=== PATIENT | male | born 1965 | race Caucasian/White ===

== ENCOUNTER 2023-04-08 05:46 | Observation (INO) | payer BC, SELFPAY ==
[2023-04-08] VITALS (10 sets, daily range): BP systolic 114–139; BP diastolic 78–95; PULSE 76–96; RESP 18; TEMP 36–36.7; O2SAT 93–98; BMI 30.1; BMI 30.4
--- NOTE | 2023-04-08 06:01 | CT_ITS ---
We are attempting to reach an attending provider to discuss findings. An addendum with communication details will be sent when the communication is complete. INDICATION: Neuro deficit, acute, stroke suspected EXAMINATION: CT BRAIN - CT Head Stroke Protocol W/O Contrast Injection TECHNIQUE: Multiple axial images were obtained of the head without intravenous contrast. A radiation dose optimization technique was used for this scan. IV Contrast dosage and agent: None. RADIATION DOSAGE (If Supplied By Facility): CTDIvol = ( ) mGy, DLP = ( ) mGycm COMPARISON: FINDINGS: BRAIN: No acute bleed. No edema. Santana-white matter differentiation is maintained. VENTRICLES AND SULCI: Not dilated. EXTRA-AXIAL: No hemorrhage, fluid collection, or mass. CALVARIUM / SKULL BASE: Unremarkable. FACE/SINUSES: Unremarkable. SOFT TISSUES: Unremarkable. CT/STROKE Brain/Head without Cont IMPRESSION: No acute abnormality. CT angiogram and/or MRI may be helpful to evaluate for acute. Electronically Signed: Renuka Jones MD at 6:14 EDT ,
--- NOTE | 2023-04-08 06:01 | EKG12_ITS ---
Test Reason : STROKE Blood Pressure : / mmHG Vent. Rate : 090 BPM Atrial Rate : 090 BPM P-R Int : 190 ms QRS Dur : 092 ms QT Int : 370 ms P-R-T Axes : 040 008 047 degrees QTc Int : 452 ms Normal sinus rhythm Possible Inferior infarct , age undetermined Abnormal ECG Confirmed by MENDY REYES, JASON ([id number]), book editor GERALD LOONEY ([id number]) on 04/11/2023 1:33:41 PM Referred By: Confirmed By:JASON BROOKE MD
--- NOTE | 2023-04-08 06:01 | RAD_ITS ---
INDICATION: Neuro deficit, acute, stroke suspected EXAMINATION/TECHNIQUE: X-RAY - XR Chest 1 View AP portable. 7:14 AM COMPARISON: FINDINGS: LINES/DEVICES: None. LUNGS: No consolidation. No pneumothorax. MEDIASTINUM: Unremarkable. CARDIAC SILHOUETTE: Not enlarged. BONES AND SOFT TISSUES: No acute abnormalities. RAD/Chest 1 View IMPRESSION: No evidence of active intrathoracic disease. Electronically Signed: Renuka Jones MD at 6:21 EDT ,
--- NOTE | 2023-04-08 06:02 | CT_ITS ---
We are attempting to reach an attending provider to discuss findings. An addendum with communication details will be sent when the communication is complete. INDICATION: Neuro deficit, acute, stroke suspected EXAMINATION: CT BRAIN WITH CONTRAST TECHNIQUE: Noncontrast axial images were obtained of the brain. Subsequently, routine carotid CT angiogram protocol was performed without and with IV contrast. In addition, images were obtained of the [place] of [place]. NASCET criteria using the distal ICAs for comparison were used for evaluation of stenoses. 3D reconstructions were reviewed. A radiation dose optimization technique was used for this scan. IV Contrast dosage and agent: COMPARISON: None. FINDINGS: --CT BRAIN: BRAIN PARENCHYMA: No intra- or extra-axial hemorrhage. No evidence of acute infarct. No intracranial mass or mass effect. There is preservation of the delgadillo/white matter interface. Posterior fossa structures are unremarkable. CSF SPACES: Appropriate for age. No hydrocephalus. Basal cisterns are patent. CALVARIUM, SKULL BASE, PARANASAL SINUSES AND MASTOID AIR CELLS: Clear. No discrete lytic or blastic abnormalities. ASPECTS Score for Acute Strokes: 10 --CTA NECK: AORTIC ARCH AND BRANCHES: Normal anatomy, patent. RIGHT CCA: No occlusion, significant stenosis or dissection. RIGHT ICA: No occlusion, significant stenosis or dissection. LEFT CCA: No occlusion, significant stenosis or dissection. LEFT ICA: No occlusion, significant stenosis or dissection. RIGHT VERTEBRAL ARTERY: No occlusion, significant stenosis or dissection. LEFT VERTEBRAL ARTERY: No occlusion, significant stenosis or dissection. NECK SOFT TISSUES: Unremarkable. --CTA HEAD: --Anterior circulation: ICAs: No significant stenosis at the intracranial/visualized segments. ACAs: No significant stenosis at the visualized segments. ACOM: Present. MCAs: No significant stenosis at the visualized segments. --Posterior circulation: supplemental nurse: No significant stenosis at the visualized segments. BASILAR ARTERY: No significant stenosis. VERTEBRAL ARTERIES: No significant stenosis at the intradural/visualized segments. No evidence of intracranial aneurysm or vascular malformation. CT/STROKE CTA Head AND Neck W/Con IMPRESSION: Negative CT Brain, CTA Carotid, and CTA Brain. Electronically Signed: Tito Rahman MD at 6:25 EDT ,
--- NOTE | 2023-04-08 06:02 | EX.ED.DYSGE1 ---
HPI History of Present Illness Chief Complaint: Neuro S/Sx [facility] Medical History (Updated 04/08/23 @ 07:[address] Andres Koo, DO) Anxiety Diabetes Hyperlipemia Hypertension Allergy/AdvReac Type Severity Reaction Status Date / Time No Known Allergies Allergy Verified 04/08/23 06:13 Social History Smoking Status: Never smoker EXAM Physical Exam Const Vital Signs: 04/08/23 05:49 04/08/23 06:01 04/08/23 06:01 Temperature 97.3 F L 97.3 F L Temperature Source Temporal Temporal Pulse Rate 92 92 Respiratory Rate 18 18 Blood Pressure 133/90 H 133/90 H Blood Pressure Mean 104 104 Pulse Ox 95 95 Oxygen Delivery Method Room Air Room Air Room Air 04/08/23 06:24 04/08/23 06:46 Temperature Temperature Source Pulse Rate 93 93 Respiratory Rate 18 18 Blood Pressure 116/83 H 114/84 H Blood Pressure Mean 94 94 Pulse Ox 93 93 Oxygen Delivery Method Room Air Room Air MDM MDM MDM Narrative Medical decision making narrative: HISTORY OF PRESENT ILLNESS: 57-year-old male here with concern for right-sided facial abnormalities. States last known well was approximately 7 PM on 04/07/2023. States he is got decreased sensation of the right arm, and noted right-sided facial drooping. Denies trauma. REVIEW OF SYSTEMS: Pertinent positives: Facial drooping, decreased sensation Pertinent negatives: Fever, neck stiffness, loss of vision PHYSICAL EXAM: Nursing triage notes reviewed, Vital signs reviewed Constitutional: please see mdm HENT: MMM Eyes: Pupils equal round and reactive to light, Extraocular muscles intact Neck: No stridor, no JVD, full neck ROM Lungs: Clear to auscultation, No wheezing or rales. No increased work of breathing, no conversational dyspnea, no accessory muscle use, no nasal flaring. No respiratory distress noted Heart: Regular rate and rhythm, No murmurs, No rubs and No gallops, 2+ distal pulses (radial, femoral, posterior tibial) in all extremities Abdomen: Soft, there is no tenderness, rigidity, rebound or guarding, no obvious peritoneal signs, no palpable pulsatile abdominal masses, no auscultated abdominal bruit : No CVAT Extremities: No edema Neuro: Alert and orient x3, right-sided facial droop, decree sensation right upper extremity, no obvious drift, ataxia, neglect, dysarthria. There is noted aphasia on exam. Skin: No rash or lesions noted MEDICAL DECISION MAKING: Chief Complaint: Facial droop External records reviewed: None Factors affecting care: None documented Social determinants of health: None History obtained from others: The patient's Consults: Stroke neurology, internal medicine ALL IMAGES (IF OBTAINED) HAVE BEEN PERSONALLY REVIEWED AND INTERPRETED BY MYSELF. MDM Narrative: I considered the following differential diagnosis: CVA, focal seizure, Randhawa's palsy. Initial exam most consistent with likely acute CVA. Initial NIH of 4. Patient was taken emergently to CAT scan to rule out bleed. He was not a tPA candidate given last known well outside the 4 and half hour window. He was still a thrombectomy candidate. Noncon CT showed no evidence of ICH, subarachnoid hemorrhage. CTA showed no evidence of large vessel occlusion. The patient is on a candidate for thrombectomy at this time. Obtained labs, EKG, chest x-ray. Labs are unremarkable. He is appropriate for admission at [facility] for further stroke evaluation including MRI and risk factor modification. Discussed with hospitalist (Dr. Fisher). Gave ASA after swallow screen. The patient and/or family, caregivers express understanding. The patient and/or family, caregivers agrees with the plan. Total critical care time today provided was at least 35 minutes. This excludes separately billable procedures. Critical care time (if documented) is secondary to the patient having high probability of clinically significant/life threatening deterioration in the patient's condition which required my urgent intervention. Shared decision making: I will have a discussion with the patient and or visitors regarding risk/benefits of further testing or admission. They will be made aware of of the risk/benefits inherent in this decision they will be given the opportunity to voice understanding. Lab Data Attestation: I reviewed the patient's lab results. Lab results narrative: Liroz-ro-wyqz glucose acceptable CBC with leukocytosis suggestive of systemic inflammation, no anemia or thrombocytopenia noted EKG with normal sinus rhythm, normal axis, normal intervals, no ST or T wave changes to suggest ischemia. No evidence of WPW, Brugada, ARVD. No coagulopathy noted Troponin is negative, no evidence of myocardial ischemia BMP without evidence of significant electrolyte abnormalities, no anion gap, no acute kidney injury. Labs: Laboratory Results - last 24 hr 04/08/23 04/08/23 04/08/23 05:54 06:00 06:00 WBC 11.1 H RBC 4.94 Hgb 15.7 Hct 47.6 MCV 96.4 H MCH 31.8 MCHC 33.0 RDW Std Deviation 47.6 H RDW Coeff of Bhargavi 13.4 Plt Count 324 MPV 11.2 Immature Gran % (Auto) 0.500 Neut % (Auto) 67.6 Lymph % (Auto) 23.9 [place] % (Auto) 6.0 Eos % (Auto) 1.3 Baso % (Auto) 0.7 Absolute Neuts (auto) 7.5 Absolute Lymphs (auto) 2.66 Nucleated RBC % 0 PT 13.7 INR 1.0 APTT 30.9 Sodium Potassium Chloride Carbon Dioxide Anion Gap BUN Creatinine Estim Creat Clear Calc Est GFR (MDRD) Af Amer Est GFR (MDRD) Non-Af BUN/Creatinine Ratio Glucose Calcium Troponin I High Sens POC Glucose 184 H 04/08/23 06:00 WBC RBC Hgb Hct MCV MCH MCHC RDW Std Deviation RDW Coeff of Bhargavi Plt Count MPV Immature Gran % (Auto) Neut % (Auto) Lymph % (Auto) [place] % (Auto) Eos % (Auto) Baso % (Auto) Absolute Neuts (auto) Absolute Lymphs (auto) Nucleated RBC % PT INR APTT Sodium 138 Potassium 3.8 Chloride 106 Carbon Dioxide 25.0 Anion Gap 7 BUN 13 Creatinine 1.15 Estim Creat Clear Calc 66.91 Est GFR (MDRD) Af Amer 84 Est GFR (MDRD) Non-Af 69 BUN/Creatinine Ratio 11.3 Glucose 201 H Calcium 9.6 Troponin I High Sens 3 POC Glucose Radiography Chest X-Ray - ED: Read by ED Physician Diagnostic Testing: Clinical Impression(s) from Imaging Studies Brain CT 04/08/23 06:01 IMPRESSION: No acute abnormality. CT angiogram and/or MRI may be helpful to evaluate for acute. Electronically Signed: Renuka Jones MD at 6:14 EDT , ADDENDUM: 04/08/23 0629 IMPRESSION: No acute abnormality. CT angiogram and/or MRI may be helpful to evaluate for acute. N.B. : The above Results were Read Back by Renuka Jones MD to andres koo DO, and understanding confirmed on 04/08/2023 06:22:36 (ET). Electronically Signed: Renuka Jones MD at 6:14 EDT , Chest X-Ray 04/08/23 06:01 IMPRESSION: No evidence of active intrathoracic disease. Electronically Signed: Renuka Jones MD at 6:21 EDT , Head/Neck CTA 04/08/23 06:02 IMPRESSION: Negative CT Brain, CTA Carotid, and CTA Brain. Electronically Signed: Tito Rahman MD at 6:25 EDT , ADDENDUM: 04/08/23 0646 IMPRESSION: Negative CT Brain, CTA Carotid, and CTA Brain. N.B. : The above Results were Read Back by Tito Rahman MD to Andres Koo DO, and understanding confirmed on 04/08/2023 06:39:10 (ET). Electronically Signed: Tito Rahman MD at 6:25 EDT , I have personally reviewed the patient's chest x-ray. Chest x-ray is unremarkable for pulmonary edema, pneumothorax, pneumonia or focal cardiopulmonary abnormality. Critical Care Time Critical Care Time: Yes Critical care time (excluding procedures): 30-74 minutes Discharge Plan Triage Chief Complaint: Neuro S/Sx ED Provider: Andres Koo Dx/Rx/DC Orders Clinical Impression: Facial droop, Alteration in sensory perception
[2023-04-08 06:10] LABS: Absolute Lymphocyte Count 2.66 X10^3/uL (0.83-4.51); Absolute Neutrophil Count 7.5 X10^3/uL (2.0-7.7); Basophil# 0.08 X10^3/uL; Basophil% 0.7 % (0-1); Eosinophil# 0.15 X10^3/uL; Eosinophils% 1.3 % (0-5); Hematocrit 47.6 % (40-54); Hemoglobin 15.7 g/dL (13.0-16.5); Lymphocyte # 2.66 X10^3/ul (0.83-4.51); Lymphocyte % 23.9 % (19-41); Mean Corpuscular Hgb 31.8 pg (27.0-32.0); Mean Corpuscular Volume 96.4 fL (80-94); Mean Platelet Vol. 11.2 fl (6.2-12.0); Monocyte# 0.67 X10^3/uL; NRBC Flagged by Analyzer 0 % (0-5); Neutrophil % 67.6 % (47-70); Platelet Count 324 K/mm3 (150-450); RBC Distribution Width CV 13.4 % (11.6-14.6); RBC Distribution Width SD 47.6 fl (35.1-43.9); Red Blood Count 4.94 M/mm3 (4.6-6.2); White Blood Count 11.1 K/mm3 (4.4-11.0)
[2023-04-08 06:13] LABS: Bedside Glucose 184 mg/dL (74-106)
[2023-04-08 06:24] LABS: Partial Thromboplast Time 30.9 Seconds (24.1-36.2); Prothrombin Time (Protime)PT. 13.7 SECONDS (11.7-14.9)
[2023-04-08 06:28] LABS: Anion Gap 7 (5-15); BUN 13 mg/dL (7-18); BUN/Creat Ratio 11.3 RATIO (10-20); Calcium,Total 9.6 mg/dL (8.5-10.1); Chloride 106 mmol/L (98-107); Creatinine, Serum 1.15 mg/dL (0.70-1.30); EST Glomerular Filtration Rate 69 mL/min (>60); Est Glom Filt Rate - Afr Amer 84 mL/min (>60); Estimated Creatinine Clearance 66.91 ml/min; Glucose 201 mg/dL (74-106); Potassium 3.8 mmol/L (3.5-5.1); Sodium Level 138 mmol/L (136-145); Troponin-I HS 3 pg/mL (3.0-78.0)
[2023-04-08] MEDS: Aspirin 325 MG Tablet PO (06:53)
--- NOTE | 2023-04-08 07:22 | PCM.HP.STD ---
HPI - General General Date of Admission: 04/08/23 Date of Service: 04/08/23 Chief Complaint: Right face paralysis HPI Narrative GUSTAVO BHAT, is a 57 M w/ hx HTN and hyperlipidemia who presented to [facility] 04/08/2023 with facial droop, slurred speech, right upper extremity decrease in sensation. CTA head neck and CT head unrevealing but patient had NIH of 4, was not a candidate for intervention as he had no large vessel occlusion and he was outside the window for tenecteplase. Hospitalist consulted for admission for further work-up evaluated patient at bedside and he reported symptoms started at 7 PM yesterday, he was eating and felt slightly off but went to bed and woke up with the right side of his face not moving with some difficulty with his speech and his right upper extremity feeling different than the left side and these deficits have persisted. His entire right side of his face upper and lower have difficulty moving and he does not necessarily endorse expressive or receptive aphasia however did seem to have slight difficulty with answering questions and was poor historian. Did not necessarily feel weak on either side however during exam did seem slightly weaker in right lower extremity and endorsed that might be slightly weaker than left and also had slight alteration in sensation both right upper and lower. Denies this ever happening before no history of stroke. Reports has had some stuffy nose with mowing the lawn and the current pollen and has had tremors in his hands off and on for 1 year. Right eye draining but no changes in vision. Has a dull aching headache, and some pain on the back right side of his head in a muscle linear fashion on the right side of his spine going up the back of his head to the middle of his skull. Denies other complaints today. Denies any tick bites or recent viral illnesses or any changes in his hearing [facility] Medical History (Updated 04/08/23 @ 07:[address] Andres Koo, ) Anxiety Diabetes Hyperlipemia Hypertension Allergy/AdvReac Type Severity Reaction Status Date / Time No Known Allergies Allergy Verified 04/08/23 06:13 Social History Smoking Status: Never smoker ROS ROS Narrative General: Denies fever/chills HENT: Dull headache in the back right side of his head/neck pain, slight stuffy nose, denies sore throat EYES: Denies changes in vision but does have tearing in his right eye Resp: Somewhat of a dry cough this past week with allergies, denies shortness of breath Cardiac: Denies chest pain GI: Denies abdominal pain, denies changes in bowel, denies nausea/vomiting : Denies changes in urination Extremity: Denies swelling MSK: Initially denied weakness but possibly very slightly weaker right greater than left Neuro: Decreased sensation in right upper and lower extremities Heme: Denies any bleeding or bruising Skin: Denies rashes Psychiatric: No complaints voiced Vital Signs Vital Signs Vital Signs: 04/08/23 05:49 04/08/23 06:01 04/08/23 06:01 Temperature 97.3 F L 97.3 F L Temperature Source Temporal Temporal Pulse Rate 92 92 Respiratory Rate 18 18 Blood Pressure 133/90 H 133/90 H Blood Pressure Mean 104 104 Pulse Ox 95 95 Oxygen Delivery Method Room Air Room Air Room Air 04/08/23 06:24 04/08/23 06:46 Temperature Temperature Source Pulse Rate 93 93 Respiratory Rate 18 18 Blood Pressure 116/83 H 114/84 H Blood Pressure Mean 94 94 Pulse Ox 93 93 Oxygen Delivery Method Room Air Room Air Weight Weight: 89.8 kg Body Mass Index (BMI) 30.1 Physical Exam Narrative General: Alert, oriented, no apparent distress HEENT: Atraumatic, normocephalic Eyes: Anicteric, normal conjunctiva, extraocular movements intact, pupils equal, did have difficulty closing right eye Neck: Supple Respiratory: Clear to auscultation bilaterally, normal respiratory effort Cardiovascular: Regular rate and rhythm GI: Soft, nontender, nondistended Extremities: No edema Musculoskeletal: Strength 5 out of 5 in right upper extremity, 5 out of 5 left upper extremity, 5 - out of 5 right lower extremity, 5 out of 5 left lower extremity Neuro: Entire right side of face decreased movement compared to left but tongue midline without difficulties moving, slight slurred speech which seem to be associated with his facial droop, shoulder shrug equal, tympanic membranes unremarkable no erythema and no vesicles seen, no sustained clonus on ankle jerk, no gross differences in reflexes bilaterally, decreased sensation in right lower extremity and right upper extremity, right upper extremity sensation closer to normal and shoulder but not distally Skin: No rashes appreciated Psych: Cooperative Results Lab / Micro Data Result Diagrams: 04/08/23 06:00 04/08/23 06:00 Labs: Laboratory Results - last 24 hr 04/08/23 05:54: POC Glucose 184 H 04/08/23 06:00: WBC 11.1 H, RBC 4.94, Hgb 15.7, Hct 47.6, MCV 96.4 H, MCH 31.8, MCHC 33.0, RDW Std Deviation 47.6 H, RDW Coeff of Bhargavi 13.4, Plt Count 324, MPV 11.2, Immature Gran % (Auto) 0.500, Neut % (Auto) 67.6, Lymph % (Auto) 23.9, [place] % (Auto) 6.0, Eos % (Auto) 1.3, Baso % (Auto) 0.7, Absolute Neuts (auto) 7.5, Absolute Lymphs (auto) 2.66, Nucleated RBC % 0 04/08/23 06:00: PT 13.7, INR 1.0, APTT 30.9 04/08/23 06:00: Sodium 138, Potassium 3.8, Chloride 106, Carbon Dioxide 25.0, Anion Gap 7, BUN 13, Creatinine 1.15, Estim Creat Clear Calc 66.91, Est GFR (MDRD) Af Amer 84, Est GFR (MDRD) Non-Af 69, BUN/Creatinine Ratio 11.3, Glucose 201 H, Calcium 9.6, Troponin I High Sens [address] 04/08/23 06:01 IMPRESSION: No acute abnormality. CT angiogram and/or MRI may be helpful to evaluate for acute. Electronically Signed: Renuka Jones MD at 6:14 EDT Reading Location ID and State: [facility] / [place] Tel , Service support , ADDENDUM: 04/08/23628 IMPRESSION: No acute abnormality. CT angiogram and/or MRI may be helpful to evaluate for acute. N.B. : The above Results were Read Back by Renuka Jones MD to andres koo DO, and understanding confirmed on 04/08/2023 06:22:36 (ET). Electronically Signed: Renuka Jones MD at 6:14 EDT Reading Location ID and State: [facility] / [place] Tel , Service support , Chest X-Ray 04/08/23 06:01 IMPRESSION: No evidence of active intrathoracic disease. Electronically Signed: Renuka Jones MD at 6:21 EDT , Head/Neck CTA 04/08/23 06:02 IMPRESSION: Negative CT Brain, CTA Carotid, and CTA Brain. Electronically Signed: Tito Rahman MD at 6:25 EDT , ADDENDUM: 04/08/23 0646 IMPRESSION: Negative CT Brain, CTA Carotid, and CTA Brain. N.B. : The above Results were Read Back by Tito Rahman MD to Andres Koo DO, and understanding confirmed on 04/08/2023 06:39:10 (ET). Electronically Signed: Tito Rahman MD at 6:25 EDT , Assessment & Plan Assessment/Plan (1) Facial droop: (2) Alteration in sensory perception: PLAN: Plan #Neurological deficits/complete right facial palsy, alteration in sensation right upper and lower extremities, right lower extremity mildly weak compared to left -Admit to tele -CT head and CTA head and neck unremarkable -Given his alteration in sensation on the right side with some mild right lower extremity weakness and complete right-sided facial involvement did obtain MRI with and without contrast of head as well as C-spine and thoracic spine -We will also order ESR and CRP as well as Lyme and HIV serology -NIH q4hr -asa, statin -Echo w/ bubble study -PT/OT/Speech eval -Hold BP medications to allow for permissive hypertension for 24 hours unless SBP greater than 220 or DBP greater than 120 or until stroke is ruled out -We will call neurology after MRI/once more results available given symptoms consistent with Randhawa's palsy however has additional neurological deficits/alterations which confuse picture. No findings symmetric do not suspect Guillain-Campbell? syndrome #Hypertension -Allow for permissive hypertension #DVT ppx: Lovenox subcu Radha Fisher MD Time spent in the patient's overall evaluation,decision-making process, review of diagnostic data, adjustment of management, discussion with other providers, nursing nursing and ancillary staff involved in patient's care documentation, 60 minutes Charges/Coding Visit Charges Inpatient E&M: 21106 Init Hosp L2
--- NOTE | 2023-04-08 07:50 | ECHOD_ITS ---
Reason For Study: TIA/CVA Procedure This was a 2D Doppler, Color Flow transthoracic echocardiogram. Exam performed portable in patient room. Left Ventricle Normal LV size. Left ventricular systolic function is normal. The estimated ejection fraction is 60 %. Stage 1 diastolic dysfunction. No regional wall motion abnormalities noted. Right Ventricle Normal RV size. Normal systolic function. Atria Normal left atrium. Normal right atrium. Normal atrial septum. Mitral Valve Normal mitral valve. Tricuspid Valve Normal tricuspid valve. Mild tricuspid valve insufficiency. Pulmonary artery systolic pressure is 28 mmHg. Aortic Valve Trisinus/trileaflet aortic valve. Pulmonic Valve Normal pulmonic valve. Great Vessels Normal aortic root. The pulmonary artery is normal size. Normal inferior vena cava. Pericardium/Pleural No pericardial effusion. Medication Performed a rapid injection of agitated mix of 9 cc saline and 1cc air to assess for atrial septal defect. MMode/2D Measurements & Calculations LVIDd: 4.6 cm IVSd: 1.1 cm Ao root diam: 3.8 cm LVIDs: 2.8 cm LVPWd: 0.89 cm LA dimension: 3.5 cm RVDd: 4.1 cm FS: 39.3 % LAV(MOD-bp): 52.4 ml LA A4 area: 17.3 cm2 RA A4 area: 12.9 cm2 LAV(MOD-bp) Indexed: 25.9 ml/m2 LAV(MOD-sp2): 55.8 ml LAV(MOD-sp4): 40.4 ml Time Measurements MV dec time: 0.25 sec Doppler Measurements & Calculations MV E max chad: 76.0 cm/sec Lat Peak E' Chad: 10.9 cm/sec Med Peak E' Chad: 8.6 cm/sec MV A max chad: 106.2 cm/sec E/E' lat: 7.0 E/E' med: 8.8 MV E/A: 0.72 MV V2 max: 118.3 cm/sec MV P1/2t max chad: 88.8 cm/sec Ao V2 max: 119.2 cm/sec MV max P.6 mmHg MV P1/2t: 85.7 msec Ao max P.7 mmHg MV V2 mean: 64.9 cm/sec MV dec slope: 303.4 cm/sec2 Ao V2 mean: 86.9 cm/sec MV mean P.0 mmHg Ao mean P.4 mmHg MV V2 VTI: 25.7 cm MVA(P1/2t): 2.6 cm2 Ao V2 VTI: 26.6 cm AV (velocity ratio): 0.92 LV V1 max: 107.5 cm/sec PA V2 max: 90.1 cm/sec TR max chad: 246.4 cm/sec LV V1 max P.6 mmHg PA V2 mean: 64.7 cm/sec TR max P.3 mmHg LV V1 mean P.6 mmHg LV V1 mean: 76.2 cm/sec LV V1 VTI: 24.5 cm ECHO/Echo Complete Interpretation Summary Normal LV size. Left ventricular systolic function is normal. The estimated ejection fraction is 60 %. Stage 1 diastolic dysfunction. Pulmonary artery systolic pressure is 28 mmHg. Normal atrial septum. Ordering Physician: Radha Fisher Performed By: Edilson Lane, ANNA
--- NOTE | 2023-04-08 08:00 | MRI_ITS ---
EXAM: MR HEAD WITHOUT AND WITH INTRAVENOUS CONTRAST CLINICAL INDICATION: cva vs white matter lesions, r facial droop, rt sided numbness TECHNIQUE: Multiplanar and multisequence MR images of the brain were obtained without and with intravenous contrast. CONTRAST: IV clariscan 18cc COMPARISON: Ct done earlier. FINDINGS: BRAIN AND EXTRA-AXIAL SPACES: Unremarkable. No intra- or extra-axial hemorrhage. No evidence of acute infarct. No intracranial mass or mass effect. There is preservation of the delgadillo/white matter interface. Posterior fossa structures are unremarkable. Ventricles are appropriate for age. No hydrocephalus. Basal cisterns are patent. SELLA: Unremarkable. Normal sella turcica, pituitary gland, infundibular stalk, optic chiasm and hypothalamus. AUDITORY SYSTEM: Unremarkable. The internal auditory canals are patent. BONES/JOINTS: Unremarkable. No discrete lytic or blastic abnormalities. SINUSES: Unremarkable as visualized. Clear. MASTOID AIR CELLS: Unremarkable as visualized. Clear. ORBITS: Unremarkable as visualized. Both globes, extraocular muscles, optic nerves and retrobulbar fat appear unremarkable. VASCULATURE: Unremarkable as visualized. Normal flow voids in the major intracranial circulation. MRI/Brain W/WO Contrast IMPRESSION: Negative MRI brain without and with intravenous contrast. Electronically Signed: Shantanu Ramírez MD at 17:50 EDT ,
--- NOTE | 2023-04-08 08:00 | MRI_ITS ---
EXAM: MR THORACIC SPINE WITHOUT AND WITH INTRAVENOUS CONTRAST CLINICAL INDICATION: abn neuro exam, cord lesions? r facial droop, rt sided numbness TECHNIQUE: Multiplanar and multisequence MR images of the thoracic spine without and with intravenous contrast. CONTRAST: IV 18cc clariscan COMPARISON: No relevant prior studies available. FINDINGS: VERTEBRAE: Circular focus of increased T2 signal and increased T1 signal in the vertebral bodies of T2, T8, T9, and T10. Minimal enhancement. No fracture. Normal alignment. There is preservation of the normal thoracic kyphosis. No scoliosis. DISCS/SPINAL CANAL/NEURAL FORAMINA: Unremarkable. Normal disc height and morphology. Normal spinal canal and neuroforamina. SPINAL CORD: Unremarkable. Normal in signal and morphology. Normal conus medullaris. SOFT TISSUES: Unremarkable. MRI/Spine Thoracic W/WO Contrast IMPRESSION: Findings suggestive of vertebral body hemangiomas. Electronically Signed: Shantanu Ramírez MD at 18:10 EDT ,
--- NOTE | 2023-04-08 08:00 | MRI_ITS ---
STUDY: MRI CERVICAL SPINE WITH AND WITHOUT CONTRAST REASON FOR EXAM: Male, 57 years old. History: abn neuro exam, cord lesions? r facial droop, rt sided numbness TECHNIQUE: Standardized fat and water weighted pulse sequences were obtained in the sagittal and axial with and without I.V. administration Contrast: IV 18cc clariscan contrast material. COMPARISON: None FINDINGS: Normal foramen magnum and brainstem-cervical cord junction. Normal craniovertebral junction. Normal anterior atlantoaxial articulation. Normal odontoid process. Normal cervical lordosis. T2 vertebral body hemangioma. C2-3: Loss of intervertebral disc height. There is endplate spondylosis of the vertebral body. Normal central canal and intervertebral neuroforamina. There is bilateral facet arthropathy. Posterior disc bulge. C3-4: Normal endplates. Normal disc height and morphology. Normal central canal and intervertebral neuroforamina. C4-5: Normal endplates. Normal disc height and morphology. Normal central canal and intervertebral neuroforamina. C5-6: Loss of intervertebral disc height. There is endplate spondylosis of the vertebral body. Normal central canal and intervertebral neuroforamina. There is bilateral facet arthropathy. Posterior disc bulge. C6-7: Loss of intervertebral disc height. There is endplate spondylosis of the vertebral body. No narrowing of the intervertebral neuroforamina. There is bilateral facet arthropathy. Posterior disc bulge. Mild spinal stenosis. C7-T1: Normal endplates. Normal disc height and morphology. Normal central canal and intervertebral neuroforamina. Normal visualized soft tissue structures. MRI/Spine Cervical W/WO Contrast IMPRESSION: (NOT LISTED IN ORDER OF SIGNIFICANCE) Multilevel degenerative changes, as described above. C6-7: Posterior disc bulge. Mild spinal stenosis. Electronically Signed: Shantanu Ramírez MD at 17:55 EDT Reading Location ID and State: [facility] / [place] , Service support ,
[2023-04-08 08:28] LABS: Erythrocyte Sedimentation Rate < 1 mm/hr (0-20)
[2023-04-08] MEDS: 0.9% Normal Saline 1,000 ML 100 ML IV (08:48)
[2023-04-08] MEDS: Aspirin 81 MG TAB.CHEW PO (08:49)
[2023-04-08] MEDS: Enoxaparin 40 MG/0.4 ML Syringe SC (08:49)
[2023-04-08 09:06] LABS: AST(SGOT) 15 U/L (15-37); Alanine Aminotransfer ALT/SGPT 34 U/L (16-61); Albumin, Serum 3.9 g/dL (3.2-5.0); Alkaline Phosphatase 74 U/L (45-117); Bilirubin, Direct 0.14 mg/dL (0.00-0.30); CRP < 2.90 mg/L (0.0-3.0); Globulin 2.8 g/dL (2.2-4.2); Protein, Total 6.7 g/dL (6.4-8.2)
[2023-04-08 09:30] LABS: HIV - WCH Non-Reactive (Nonreactive)
[2023-04-08 12:28] LABS: Bedside Glucose 105 mg/dL (74-106)
--- NOTE | 2023-04-08 17:02 | NURSING ---
Patient left unit to MRI at 1345 Patient returned to unit at 1615
--- NOTE | 2023-04-08 17:08 | NURSING ---
NIH late at 1630 04/08/23 due to patient being in MRI. Was due at 1600.
[2023-04-08] MEDS: Acetaminophen 325 MG Tablet 650 MG PO (17:34)
[2023-04-08 18:02] LABS: Bedside Glucose 116 mg/dL (74-106)
--- NOTE | 2023-04-08 21:35 | NURSING ---
Emergency Documentation in place 04/08 19:00
[2023-04-08 22:59] LABS: Bedside Glucose 122 mg/dL (74-106)
[2023-04-09 04:15] VITALS: BP 134/97; PULSE 82; RESP 18; TEMP 36.1; O2SAT 96
[2023-04-09 06:00] VITALS: BMI 30.1
[2023-04-09 06:36] LABS: Absolute Lymphocyte Count 2.06 X10^3/uL (0.83-4.51); Absolute Neutrophil Count 5.9 X10^3/uL (2.0-7.7); Basophil# 0.04 X10^3/uL; Basophil% 0.5 % (0-1); Eosinophil# 0.14 X10^3/uL; Eosinophils% 1.6 % (0-5); Hematocrit 45.5 % (40-54); Hemoglobin 15.2 g/dL (13.0-16.5); Lymphocyte # 2.06 X10^3/ul (0.83-4.51); Lymphocyte % 23.8 % (19-41); Mean Corp Hgb Conc 33.4 g/dL (32-36); Mean Corpuscular Hgb 32.1 pg (27.0-32.0); Mean Platelet Vol. 10.7 fl (6.2-12.0); Monocyte# 0.49 X10^3/uL; Monocyte% 5.7 % (0-10); NRBC Flagged by Analyzer 0 % (0-5); Neutrophil # 5.91 X10^3/uL (2.7-7.7); Neutrophil % 68.1 % (47-70); Platelet Count 246 K/mm3 (150-450); RBC Distribution Width CV 13.2 % (11.6-14.6); RBC Distribution Width SD 46.6 fl (35.1-43.9); Red Blood Count 4.74 M/mm3 (4.6-6.2); White Blood Count 8.7 K/mm3 (4.4-11.0)
[2023-04-09] MEDS: Lithium Carbonate 300mg Capsule 300 MG PO (06:39)
[2023-04-09] MEDS: Pantoprazole Sodium 20 MG Tablet PO (06:39)
[2023-04-09] MEDS: Aspirin 81 MG TAB.CHEW PO (06:39)
[2023-04-09] MEDS: busPIRone 5 MG Tablet 10 MG PO (06:39)
[2023-04-09] MEDS: Venlafaxine XR 150 MG Capsule PO (06:39)
--- NOTE | 2023-04-09 06:39 | NURSING ---
Pt requesting home morning meds to be given now.
[2023-04-09] MEDS: clonazePAM 0.5 MG Tablet PO (06:44)
[2023-04-09] MEDS: Gabapentin 600 MG Tablet 1200 MG PO (06:45)
[2023-04-09 06:58] LABS: Bedside Glucose 169 mg/dL (74-106)
[2023-04-09 07:31] LABS: ALB/GLOB Ratio 1.4 RATIO (0.9-2.4); AST(SGOT) 16 U/L (15-37); Alanine Aminotransfer ALT/SGPT 33 U/L (16-61); Albumin, Serum 3.8 g/dL (3.2-5.0); Alkaline Phosphatase 75 U/L (45-117); BUN 15 mg/dL (7-18); BUN/Creat Ratio 14.4 RATIO (10-20); Calcium,Total 9.1 mg/dL (8.5-10.1); Cholesterol 148 mg/dL (200); Creatinine, Serum 1.04 mg/dL (0.70-1.30); EST Glomerular Filtration Rate 78 mL/min (>60); Est Glom Filt Rate - Afr Amer 94 mL/min (>60); Globulin 2.7 g/dL (2.2-4.2); Glucose 136 mg/dL (74-106); Protein, Total 6.5 g/dL (6.4-8.2)
[2023-04-09 07:32] LABS: Anion Gap 7 (5-15); Chloride 108 mmol/L (98-107); High Density Lipoprotein 37 mg/dL; Sodium Level 139 mmol/L (136-145); Triglycerides 457 mg/dL
--- NOTE | 2023-04-09 08:03 | CASEMGMT ---
Social work PHQ-9 not completed, as per neurology consult pt did not have a stroke, but rather symptoms related to [place] P[place]y. ED [place]
[2023-04-09 10:05] LABS: Hemoglobin A1c 6.1 % (3.8-5.6)
[2023-04-09 10:08] LABS: Lyme Scn Total Ab w/Rflx Negative (Negative)
[2023-04-09 10:10] LABS: Syphilis Antibodies Non-reactive
[2023-04-09 10:15] VITALS: BP 121/92; PULSE 88; RESP 16; TEMP 36.5; O2SAT 96
[2023-04-09] MEDS: predniSONE 20 MG Tablet 60 MG PO (10:18)
[2023-04-09 10:40] VITALS: O2SAT 93
[2023-04-09 11:14] VITALS: BMI 30.1
[2023-04-09 11:46] LABS: Bedside Glucose 201 mg/dL (74-106)
--- NOTE | 2023-04-09 12:50 | DCINST_ITS ---
Discharge Instructions Diet Discharge Diet: No restrictions Activity Discharge Activity: Return to Normal Activity Follow Up Care Test Results: Test results from this visit will be discussed in further detail at your follow- up appointment, if applicable. Discharge Plan Admission Admit Date/Time: 04/08/23 07:31 Primary Reason for Your Visit: Right sided facial drooping Attending Provider: Radha Fisher Primary Care Provider: Jessica Marcelino Instructions Patient Instructions: Randhawa's Palsy, ED Randhawa's Palsy Additional Instructions / Restrictions: DISCHARGE INSTRUCTIONS PLEASE READ *Please take this with you to your next doctors appointment* -You will be discharged on 81 mg of aspirin and you will be on prednisone for your Randhawa's palsy to help with recovery. He will take prednisone 60 mg for another 5 days and this will be tapered over the following 4 days -As we discussed there was an incidental finding on your thoracic MRI, you were found to have several spots with extra vessels, called vertebral body hemangiomas, which can be found in up to 10% and are benign. These routinely do not need follow up but this can be discussed with your primary care physician -Your lithium level was 1.10 which is the upper limit of normal, recommend discussing with your psychiatrist for further monitoring or adjustments in the future if needed. -Your lab work-up including inflammatory markers, syphilis, Lyme disease, HIV have been negative. You have several lab studies still pending which will not acutely alter management and they can take multiple days for results to come back. These result can be followed up with through your primary care physi clement's office. You can also use the [employer] patient portal to gain access to any laboratory results that are pending -Please call your primary care provider's office upon discharge to schedule a hospital follow up within 1 week. -For any concerning signs or symptoms please call 911 or proceed to the nearest emergency department Discharge Orders/Prescriptions Prescriptions: New aspirin 81 mg Tablet,Chewable 81 mg PO BREAKFAST 30 Days Qty: 30 0RF prednisone 20 mg Tablet See Taper PO BREAKFAST Qty: 22 0RF Taper: Prednisone Taper 60 mg WITH BREAKFAST for 5 Days and 0 Hour 50 mg WITH BREAKFAST for 1 Day and 0 Hour 40 mg WITH BREAKFAST for 1 Day and 0 Hour 30 mg WITH BREAKFAST for 1 Day and 0 Hour 20 mg WITH BREAKFAST for 1 Day and 0 Hour Continued gabapentin 600 mg Tablet 1,200 mg PO BID atorvastatin 80 mg Tablet 80 mg PO QHS clonazepam 0.5 mg Tablet 0.5 mg PO BID venlafaxine 150 mg Capsule,Extended Release 24hr 150 mg PO BID lithium carbonate 300 mg Capsule 300 mg PO BID Rx Instructions: 1 capsule in the morning, 2 capsules in the evening buspirone 10 mg Tablet 10 mg PO TID lisinopril 10 mg Tablet 10 mg PO DAILY omeprazole 20 mg Capsule,Delayed Release(Dr/Ec) 20 mg PO DAILY Referrals / Follow Up: Jessica Marcelino MD [Primary Care Provider] - Within 1 Week Disposition Disposition (needs filled in before D/C Order can be placed): Home, Self Care
--- NOTE | 2023-04-09 13:09 | DS.PCM_ITS ---
Providers Date of Admission: 04/08/23 Date of Discharge: 04/09/23 Primary Care Physician: Dr. 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.0 - Randhawa's palsy (2) Hypertriglyceridemia: Status: Acute Code(s): E78.1 - Pure hyperglyceridemia (3) Vertebral body hemangioma: Status: Acute Code(s): D18.09 - Hemangioma of other sites Plan #[place] palsy #Hypertension #Depression and anxiety #LILLIANA on cpap #Suspected vertebral body hemangiomas on MRI Medications at Discharge Home Medications atorvastatin 80 mg tablet 80 mg PO QHS cholesterol 04/08/23 buspirone 10 mg tablet 10 mg PO TID anxiety 04/08/23 clonazepam 0.5 mg tablet 0.5 mg PO BID anxiety 04/08/23 gabapentin 600 mg tablet 1,200 mg PO BID nerve pain 04/08/23 lisinopril 10 mg tablet 10 mg PO DAILY blood pressure 04/08/23 lithium carbonate 300 mg capsule 300 mg PO BID mental health 04/08/23 omeprazole 20 mg capsule,delayed release 20 mg PO DAILY reflux 04/08/23 venlafaxine 150 mg capsule,extended release 24 hr 150 mg PO BID mental health 04/08/23 aspirin 81 mg chewable tablet 81 mg PO BREAKFAST 30 days #30 tabs 04/09/23 prednisone 20 mg tablet See Taper PO BREAKFAST #22 tabs 04/09/23 Hospital Course Procedures Transthoracic echo Summary of Care Provided Minutes Spent on Discharge: 40 Hospital Course: 57-year-old male with history of hypertension, depression, LILLIANA, high cholesterol presented to [facility] 04/08/2023 with R facial droop, slurred speech, right upper extremity and lower extremity decrease in sensation. CTA head neck and CT head unrevealing but patient had NIH of 4, was not a candidate for intervention as he had no large vessel occlusion and he was outside the window for tenecteplase.? Hospitalist consulted for admission for further work- up. Patient had droop both upper and lower right side of face however given his reported alteration in sensation of right hand and lower arm as well as some on his leg and possibly slight weakness of right leg compared to left he was admitted for further stroke work-up though complete right-sided facial droop more consistent with peripheral etiology. Echocardiogram with EF of 60%, stage I diastolic dysfunction with no wall motion abnormalities and normal atrial septum. Given his right arm and leg complaints he not only had MRI with and without contrast of his brain but also C-spine and T-spine ordered patient had no stroke and no other findings that would suggest underlying etiology. Did have some changes consistent with vertebral body hemangiomas but nothing that would contribute to current symptomatology. Inflammatory markers were negative, syphilis, HIV, Lyme negative. Had MICHAEL with reflex panel pending but does not need to stay inpatient while waiting for these results. Telemetry neuro evaluated and recommended aspirin daily as well as prednisone 60 mg x 5 days with a 4-day taper. On day of discharge patient still reports he does have the right-sided facial droop but sensation in extremities improving and weakness in right leg resolved, does still have some intermittent sharp pains on the right side of the back of his skull that have been present for a week or 2 and come and go and have been unchanged. If prednisone does not improve this, further work-up or treatment. Discharge instructions as follows: DISCHARGE INSTRUCTIONS PLEASE READ *Please take this with you to your next doctors appointment* -You will be discharged on 81 mg of aspirin and you will be on prednisone for your Randhawa's palsy to help with recovery.? He will take prednisone 60 mg for another 5 days and this will be tapered over the following 4 days -As we discussed there was an incidental finding on your thoracic MRI, you were found to have several spots with extra vessels, called vertebral body hemangiomas, which can be found in up to 10% and are benign. These routinely do not need follow up but this can be discussed with your primary care physician -Your lithium level was 1.10 which is the upper limit of normal, recommend discussing with your psychiatrist for further monitoring or adjustments in the future if needed. -Your lab work-up including inflammatory markers, syphilis, Lyme disease, HIV have been negative.? You have several lab studies still pending which will not acutely alter management and they can take multiple days for results to come back.? These result can be followed up with through your primary care physician 's office.? You can also use the [employer] patient portal to gain access to any laboratory results that are pending -Please call your primary care provider's office upon discharge to schedule a hospital follow up within 1 week. -For any concerning signs or symptoms please call 911 or proceed to the nearest emergency department Physical Exam Narrative General: Alert, oriented, no apparent distress HEENT: Atraumatic, right-sided facial droop Eyes: Anicteric, normal conjunctiva, extraocular movements grossly intact, right-sided facial droop with difficulty blinking right eye compared to left Neck: Supple Respiratory: Clear to auscultation bilaterally, normal respiratory effort Cardiovascular: Regular rate and rhythm GI: Soft, nontender, nondistended Extremities: No edema. No pain when palpating neck or back of head Musculoskeletal: Moving all extremities, legs with equal strength today, 5/ Neuro: Right-sided facial droop appreciated with no other overt focal deficits Skin: No rashes appreciated Psych: Cooperative Weight / BMI Weight Weight: 87.2 kg Body Mass Index (BMI) 30.1 ABG / Lab / Microbiology Data Result Diagrams: 04/09/23 06:20 04/09/23 06:20 Laboratory: Laboratory Results - last 24 hr 04/08/23 08:13: Lyme Total Antibody Negative 04/08/23 17:43: POC Glucose 116 H 04/08/23 22:17: POC Glucose 122 H 04/09/23 06:20: WBC 8.7, RBC 4.74, Hgb 15.2, Hct 45.5, MCV 96.0 H, MCH 32.1 H, MCHC 33.4, RDW Std Deviation 46.6 H, RDW Coeff of Bhargavi 13.2, Plt Count 246, MPV 10.7, Immature Gran % (Auto) 0.300, Neut % (Auto) 68.1, Lymph % (Auto) 23.8, [place] % (Auto) 5.7, Eos % (Auto) 1.6, Baso % (Auto) 0.5, Absolute Neuts (auto) 5.9, Absolute Lymphs (auto) 2.06, Nucleated RBC % 0 04/09/23 06:20: Sodium 139, Potassium 4.0, Chloride 108 H, Carbon Dioxide 24.0, Anion Gap 7, BUN 15, Creatinine 1.04, Estim Creat Clear Calc 71.50, Est GFR (MDRD) Af Amer 94, Est GFR (MDRD) Non-Af 78, BUN/Creatinine Ratio 14.4, Glucose 136 H, Calcium 9.1, Total Bilirubin 0.70, AST 16, ALT 33, Alkaline Phosphatase 75, Total Protein 6.5, Albumin 3.8, Globulin 2.7, Albumin/Globulin Ratio 1.4, Triglycerides 457 H, Cholesterol 148, LDL Cholesterol TNP, VLDL Cholesterol TNP, HDL Cholesterol 37 L 04/09/23 06:20: Hemoglobin A1c 6.1 H 04/09/23 06:34: POC Glucose 169 H 04/09/23 08:10: Syphilis Total Ab Non-reactive 04/09/23 08:10: [place] 1.10 04/09/23 11:29: POC Glucose 201 H Radiography Diagnostic Testing: Radiology Impression Echocardiogram 04/08/23 07:50 Interpretation Summary Normal LV size. Left ventricular systolic function is normal. The estimated ejection fraction is 60 %. Stage 1 diastolic dysfunction. Pulmonary artery systolic pressure is 28 mmHg. Normal atrial septum. Ordering Physician: Radha Fisher Performed By: Edilson Lane [facility] Brain MRI 04/08/23 08:00 IMPRESSION: Negative MRI brain without and with intravenous contrast. Electronically Signed: Shantanu Ramírez MD at 17:50 EDT , Cervical Spine MRI 04/08/23 08:00 IMPRESSION: (NOT LISTED IN ORDER OF SIGNIFICANCE) Multilevel degenerative changes, as described above. C6-7: Posterior disc bulge. Mild spinal stenosis. Electronically Signed: Shantanu Ramírez MD at 17:55 EDT , Thoracic Spine MRI 04/08/23 08:00 IMPRESSION: Findings suggestive of vertebral body hemangiomas. Electronically Signed: Shantanu Ramírez MD at 18:10 EDT Reading Location ID and State: [facility] / [place] , Service support , D/C Instructions Discharge Diet: No restrictions Meaningful Use Info Meaningful Use Diagnoses (Choose all that apply): None applicable Discharge Plan Admission Admit Date/Time: 04/08/23 07:31 Primary Reason for Your Visit: Right sided facial drooping Attending Provider: Radha Fisher Primary Care Provider: Jessica Marcelino Instructions Patient Instructions: Randhawa's Palsy, ED Randhawa's Palsy Additional Instructions / Restrictions: DISCHARGE INSTRUCTIONS PLEASE READ *Please take this with you to your next doctors appointment* -You will be discharged on 81 mg of aspirin and you will be on prednisone for your Randhawa's palsy to help with recovery. He will take prednisone 60 mg for another 5 days and this will be tapered over the following 4 days -As we discussed there was an incidental finding on your thoracic MRI, you were found to have several spots with extra vessels, called vertebral body hemangiomas, which can be found in up to 10% and are benign. These routinely do not need follow up but this can be discussed with your primary care physician -Your lithium level was 1.10 which is the upper limit of normal, recommend discussing with your psychiatrist for further monitoring or adjustments in the future if needed. -Your lab work-up including inflammatory markers, syphilis, Lyme disease, HIV have been negative. You have several lab studies still pending which will not acutely alter management and they can take multiple days for results to come back. These result can be followed up with through your primary care physi clement's office. You can also use the [employer] patient portal to gain access to any laboratory results that are pending -Please call your primary care provider's office upon discharge to schedule a hospital follow up within 1 week. -For any concerning signs or symptoms please call 911 or proceed to the nearest emergency department Discharge Orders/Prescriptions Prescriptions: New aspirin 81 mg Tablet,Chewable 81 mg PO BREAKFAST 30 Days Qty: 30 0RF prednisone 20 mg Tablet See Taper PO BREAKFAST Qty: 22 0RF Taper: Prednisone Taper 60 mg WITH BREAKFAST for 5 Days and 0 Hour 50 mg WITH BREAKFAST for 1 Day and 0 Hour 40 mg WITH BREAKFAST for 1 Day and 0 Hour 30 mg WITH BREAKFAST for 1 Day and 0 Hour 20 mg WITH BREAKFAST for 1 Day and 0 Hour Continued gabapentin 600 mg Tablet 1,200 mg PO BID atorvastatin 80 mg Tablet 80 mg PO QHS clonazepam 0.5 mg Tablet 0.5 mg PO BID venlafaxine 150 mg Capsule,Extended Release 24hr 150 mg PO BID lithium carbonate 300 mg Capsule 300 mg PO BID Rx Instructions: 1 capsule in the morning, 2 capsules in the evening buspirone 10 mg Tablet 10 mg PO TID lisinopril 10 mg Tablet 10 mg PO DAILY omeprazole 20 mg Capsule,Delayed Release(Dr/Ec) 20 mg PO DAILY Referrals / Follow Up: Jessica Marcelino MD [Primary Care Provider] - Within 1 Week Disposition Disposition (needs filled in before D/C Order can be placed): Home, Self Care Charges/Coding Visit Charges Inpatient E&M: 52304 Disch Hosp >30min
[2023-04-11 13:07] LABS: ANTINUCLEAR ANTIBODIES DIRECT Negative (Negative)
== END 2023-04-09 14:03 | disposition home or self-care (01) ==
LOC: ED 06:03 → PCU 07:26
PROVIDERS: Admitting Provider Internal Medicine; Emergency Provider Emergency Medicine; PCP Internal Medicine; Visit Provider Internal Medicine
DX: G51.0 Bell's palsy (principal); E11.9 Type 2 diabetes mellitus without complications; D18.09 Hemangioma of other sites; R47.81 Slurred speech; I10 Essential (primary) hypertension; Z79.899 Other long term (current) drug therapy; E78.00 Pure hypercholesterolemia, unspecified; F41.9 Anxiety disorder, unspecified; R94.31 Abnormal electrocardiogram [ECG] [EKG]; I07.1 Rheumatic tricuspid insufficiency
CPT/HCPCS: 36415; 70450; 70496; 70498; 70553; 71045; 72156; 72157; 80048; 80053; 80061; 80076; 80178; 82962; 83036; 84484; 85025; 85610; 85652; 85730; 86038; 86140; 86225; 86235; 86618; 86703; 86780; 92526; 92610; 93005; 93306; 94668; 94762; 96360; 96361; 96372; 97110; 97116; 97162; 97166; 97530; 99221; 99252; 99284; A9575; J7030; Q9957; Q9967; A4216; G0378; G0463

== ENCOUNTER 2023-06-28 09:37 | Emergency (ER) | payer BC, SELFPAY ==
[2023-06-28 09:38] VITALS: BP 133/86; PULSE 98; RESP 14; TEMP 36.4; O2SAT 98; BMI 28.8
--- NOTE | 2023-06-28 09:51 | EDS_ITS ---
HPI History of Present Illness Chief Complaint: Neuro S/Sx Narrative Narrative: Patient presents with facial droop inability to close eye and forehead involvement. No weakness in the arm or leg. No recent fevers chills. No recent rash. He has never had shingles in the past. Denies any other target lesion recently. His history is complicated that a few months ago he had right- sided Randhawa's palsy which mostly resolved. 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 Anxiety Arthritis CPAP (continuous positive airway pressure) dependence Depression Diabetes Diabetes Former smoker HTN (hypertension) Hyperlipemia Hypertension Kidney stones Sleep apnea Vertebral body hemangioma Home Medications atorvastatin 80 mg tablet 80 mg PO QHS cholesterol 04/08/23 [History Last Taken 04/07/23] buspirone 10 mg tablet 10 mg PO TID anxiety 04/08/23 [History Last Taken 04/08/23 05:00] clonazepam 0.5 mg tablet 0.5 mg PO BID anxiety 04/08/23 [History Last Taken 04/08/23 05:00] gabapentin 600 mg tablet 1,200 mg PO BID nerve pain 04/08/23 [History Last Taken 04/08/23 05:00] lisinopril 10 mg tablet 10 mg PO DAILY blood pressure 04/08/23 [History Last Taken 04/08/23 05:00] lithium carbonate 300 mg capsule 300 mg PO BID mental health 04/08/23 [History Last Taken 04/08/23 05:00] omeprazole 20 mg capsule,delayed release 20 mg PO DAILY reflux 04/08/23 [History Last Taken 04/08/23 05:00] venlafaxine 150 mg capsule,extended release 24 hr 150 mg PO BID mental health 04/08/23 [History Last Taken 04/08/23 05:00] aspirin 81 mg chewable tablet 81 mg PO BREAKFAST 30 days #30 tabs 04/09/23 [Rx Last Taken Unknown] prednisone 20 mg tablet See Taper PO BREAKFAST #22 tabs 04/09/23 [Rx Last Taken Unknown] doxycycline hyclate 100 mg tablet 100 mg PO BID #20 tabs 06/28/23 [Rx Last Taken Unknown] prednisone 20 mg tablet 60 mg (3 x 20 mg) PO DAILY #12 TABLETS 06/28/23 [Rx Last Taken Unknown] Allergy/AdvReac Type Severity Reaction Status Date / Time No Known Allergies Allergy Verified 04/13/23 09:26 Social History Smoking Status: Never smoker alcohol intake: never ROS ROS ED ROS Narrative Past medical history: Reviewed Medications: Reviewed Social history: Noncontributory Review of systems: All systems negative except as indicated General: No fever Eyes: No visual changes. Left-sided dry ENT: No upper airway congestion, normal voice. No ear pain. Left-sided facial droop Neck: No neck pain Cardiovascular: No chest pain Respiratory: No shortness of breath or cough Gastrointestinal: No abdominal pain, nausea vomiting or diarrhea Musculoskeletal: Denies myalgias no difficulty with ambulation Skin: No rash Neurological: Left-sided weakness as in HPI Psych: No recent behavioral changes Hematologic: No easy bleeding or easy bruising EXAM Physical Exam Narrative Exam Narrative: Physical exam General: Patient appears comfortable. Head: Normocephalic, Atraumatic Eyes: Conjunctiva not pale. Pupils are equal and reactive. Unable to close left eyelid all the way. ENT: Moist mucous membranes. TMs are clear. No rashes seen. Left-sided facial droop involving the forehead Neck: Supple, Nontender, No lymphadenopathy Cardiovascular: Regular rate, Regular rhythm Respiratory: No distress, CTA bilaterally Abdomen: Soft, Nontender, Nondistended Back: Nontender, Normal Inspection. Negative for: CVA tenderness Extremities: Nontender, No edema Skin: Normal color, No rash Neurological: Alert, Normal Strength, Normal Sensation. Normal cerebellar normal gait. Left-sided facial droop involving the forehead. Const Vital Signs: 06/28/23 09:38 Temperature 97.6 F L Temperature Source Temporal Pulse Rate 98 Respiratory Rate 14 Blood Pressure 133/86 H Blood Pressure Mean 101 Pulse Ox 98 Oxygen Delivery Method Room Air MDM MDM MDM Narrative Medical decision making narrative: Patient has a cranial nerve VII palsy. He had a recent history of cranial nerve self palsy on the other side which is similar. At that time he underwent a full stroke work-up including MRI. I do not believe at this time a CT is needed or an MRI. I do not believe any blood work is needed. I am unsure about the etiology of the Randhawa's palsy, I am worried about a viral etiology, I am also worried about Lyme's disease since this is recurrent. We will treat with steroids, acyclovir and doxycycline. He can follow-up with ENT and/or neurology as needed. Otherwise he is reassured and discharged in stable condition. Discharge Plan Triage Chief Complaint: Neuro S/Sx ED Provider: Ab Moon Dx/Rx/DC Orders Clinical Impression: Randhawa's palsy, Facial droop, HTN (hypertension) Instructions: Randhawa's Palsy Prescriptions: New prednisone 20 mg tablet 60 mg PO DAILY Qty: 12 0RF Rx Instructions: start 06/29/23 doxycycline hyclate 100 mg tablet 100 mg PO BID Qty: 20 0RF No Action gabapentin 600 mg Tablet 1,200 mg PO BID atorvastatin 80 mg Tablet 80 mg PO QHS clonazepam 0.5 mg Tablet 0.5 mg PO BID venlafaxine 150 mg Capsule,Extended Release 24hr 150 mg PO BID lithium carbonate 300 mg Capsule 300 mg PO BID Rx Instructions: 1 capsule in the morning, 2 capsules in the evening buspirone 10 mg Tablet 10 mg PO TID lisinopril 10 mg Tablet 10 mg PO DAILY omeprazole 20 mg Capsule,Delayed Release(Dr/Ec) 20 mg PO DAILY aspirin 81 mg Tablet,Chewable 81 mg PO BREAKFAST 30 Days Qty: 30 0RF prednisone 20 mg Tablet See Taper PO BREAKFAST Qty: 22 0RF Taper: Prednisone Taper 60 mg WITH BREAKFAST for 5 Days and 0 Hour 50 mg WITH BREAKFAST for 1 Day and 0 Hour 40 mg WITH BREAKFAST for 1 Day and 0 Hour 30 mg WITH BREAKFAST for 1 Day and 0 Hour 20 mg WITH BREAKFAST for 1 Day and 0 Hour Primary Care Provider: Jessica Marcelino Referrals: Jessica Marcelino MD [Primary Care Provider] - Disposition Disposition: Home, Self Care
[2023-06-28 10:01] VITALS: BMI 29.2
[2023-06-28] MEDS: predniSONE 20 MG Tablet 60 MG PO (10:07)
[2023-06-28] MEDS: Acyclovir 800 MG Tablet PO (10:08)
[2023-06-28] MEDS: Doxycycline 100 MG CAPSULE PO (10:08)
== END 2023-06-28 10:17 | disposition home or self-care (01) ==
LOC: ED 10:14
PROVIDERS: Emergency Provider Emergency Medicine; PCP Internal Medicine; Visit Provider Emergency Medicine
DX: G51.0 Bell's palsy (principal); E11.9 Type 2 diabetes mellitus without complications; E78.5 Hyperlipidemia, unspecified; I10 Essential (primary) hypertension; Z99.89 Dependence on other enabling machines and devices; Z79.899 Other long term (current) drug therapy; F41.9 Anxiety disorder, unspecified; F32.A Depression, unspecified; Z79.82 Long term (current) use of aspirin
CPT/HCPCS: 99282

== ENCOUNTER 2025-01-09 16:51 | Emergency (ER) | payer BC, SELFPAY ==
[2025-01-09 16:52] VITALS: BP 134/91; PULSE 122; RESP 16; TEMP 36.8; O2SAT 100; BMI 27.6
--- NOTE | 2025-01-09 18:05 | ED.RN ---
PT STATES HIS DR CALLED AND GOT THE MRI APPROVED, THEY DECIDED THEY WILL GO HOME AND CONTINUE TO TAKE THE MEDS AND F/U W PCP
== END 2025-01-09 18:04 | disposition left against medical advice (07) ==
LOC: ED 18:07
PROVIDERS: PCP Internal Medicine
DX: R42 Dizziness and giddiness (principal)

== ENCOUNTER 2025-01-11 18:25 | Emergency (ER) | payer OTHER, SELFPAY ==
[2025-01-11 18:26] VITALS: BP 113/83; PULSE 116; RESP 16; TEMP 36.7; O2SAT 97; BMI 27.6
--- NOTE | 2025-01-11 20:33 | CT_ITS ---
PROCEDURE: CTA HEAD AND NECK W/ CONTRAST REASON FOR EXAM: DIZZINESS TECHNIQUE: CTA HEAD AND NECK WITH IV CONTRAST AND 3-D CONTRAST: COMPARISON: None. FINDINGS: AORTIC ARCH The aortic arch is normal. There is a common trunk of the innominate and left common carotid arteries. The origins of the arch branch vessels are patent. EXTRACRANIAL CAROTIDS The common carotid, internal carotid and external carotid segments are widely patent throughout the neck. RIGHT ICA Maximum stenosis (NASCET): 0 % LEFT ICA Maximum stenosis (NASCET): 0 % SKULL BASE The petrous, cavernous and supraclinoid segments of the distal internal carotid arteries are patent with normal configuration. The ophthalmic arteries, posterior communicating artery and anterior choroidal artery origins are normal. INTRACRANIAL VASCULATURE Cerebral Arteries: The anterior, middle and posterior cerebral artery distributions are within normal limits. Te-[place]ak of [place]: The A1 and P1 segments are patent. There is a patent anterior communicating artery with normal configuration. There are small patent posterior communicating arteries with normal configuration. Venous Drainage: Unremarkable. VERTEBROBASILAR SYSTEM The proximal subclavian arteries, both vertebral arteries and basilar artery are widely patent. The cerebellar arteries are within normal limits. NONVASCULAR There is no abnormal intracranial enhancement. The ventricles, cisterns, sulci and parenchymal attenuation are normal. Bone windows are unremarkable. CT/CTA Head AND Neck W/ Contrast IMPRESSION: Patent anterior and posterior intracranial and extracranial circulation without hemodynamically significant stenosis One or more dose reduction techniques were used (e.g., Automated exposure contr ol, adjustment of the mA and/or kV according to patient size, use of iterative reconstruction technique). Reading Location: [facility]
--- NOTE | 2025-01-11 20:33 | CT_ITS ---
EXAM: CT images of the brain were acquired without intravenous contrast. Multiplanar reformats were acquired. COMPARISON: None available. FINDINGS: * ACUTE: No acute infarct or hemorrhage. No mass effect or herniation. * BRAIN PARENCHYMA: Signal intensities are within normal limits for age. * VENTRICLES/EXTRA-AXIAL SPACES: No hydrocephalus or extra-axial fluid collections. * EXTRACRANIAL STRUCTURES: Visualized osseous structures are normal. Soft tissues are normal. CT/Brain/Head without Contrast IMPRESSION: No acute intracranial findings. CLINICAL HISTORY: DIZZINESS Reading Location: [facility]
--- NOTE | 2025-01-11 20:33 | EKG12_ITS ---
Test Reason : DYSRHYTHMIA Blood Pressure : */* mmHG Vent. Rate : 104 BPM Atrial Rate : 104 BPM P-R Int : 170 ms QRS Dur : 90 ms QT Int : 366 ms P-R-T Axes : 45 8 55 degrees QTcB Int : 481 ms Sinus tachycardia Inferior infarct (cited on or before 08-Apr-2023) Possible Anterolateral infarct , age undetermined Abnormal ECG Confirmed by BALAJI REYES, TYRESE ([id number]), editor farm journal ALEXANDER QUINTANA ([id number]) on 01/14/2025 11:01:51 AM Referred By: Confirmed By: TYRESE CARPIO MD
--- NOTE | 2025-01-11 20:34 | EDS_ITS ---
HPI History of Present Illness Chief Complaint: General Illness Informant: patient and spouse/S.O. Onset/Context/Timing Onset: Days Context: Gradual Onset Timing: Continuous Current Severity: Mild Maximum Severity: Mild Narrative Narrative: 59-year-old male history of diabetes hypertension. States that he has had some dizziness since last Tuesday. On Tuesday he had nausea and a dull ache on the right side of his head with some vomiting. Saw his primary care physician earlier this week treating for possible vertigo with prednisone and meclizine he said he has not gotten any better. Denies any falls or head injury. No visual change or change in his speech. No weakness in his upper or lower extremities. 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 Anxiety Diabetes Hyperlipemia Hypertension Home Medications ?Medication ?Instructions ?Recorded ?Last Taken ?Type atorvastatin 80 mg tablet 80 mg PO QHS cholesterol 07/2304/07/23 History buspirone 10 mg tablet 10 mg PO TID anxiety 3 04/08/23 05:00 History clonazepam 0.5 mg tablet 0.5 mg PO BID anxiety 04/08/23 05:00 History gabapentin 600 mg tablet 1,200 mg PO BID nerve pain 0 04/08/23 04/08/23 05:00 History lisinopril 10 mg tablet 10 mg PO DAILY blood pressur e 04/08/23 04/08/23 05:00 History lithium carbonate 300 mg capsule 300 mg PO BID mental health 04/08/23 04/08/23 05:00 History omeprazole 20 mg capsule,delayed 20 mg PO DAILY reflux 04/08/23 04/08/23 05:00 History release venlafaxine 150 mg 150 mg PO BID mental health 04/08/23 04/08/23 05:00 History capsule,extended release 24 hr aspirin 81 mg chewable tablet 81 mg PO BREAKFAST 30 da ys #30 tabs 04/09/23 Unknown Rx prednisone 20 mg tablet See Taper PO BREAKFAST #22 t abs 04/09/23 Unknown Rx doxycycline hyclate 100 mg tablet 100 mg PO BID #20 ta bs 06/28/23 Unknown Rx prednisone 20 mg tablet 60 mg (3 x 20 mg) PO DAILY # 12 06/28/23 Unknown Rx TABLETS Allergy/AdvReac Type Severity Reaction Status Date / Time No Known Allergies Allergy Verified 01/11/25 18:26 Social History Smoking Status: Unknown if ever smoked alcohol intake: never ROS ROS ED ROS Narrative Mild headache. Nausea vomiting. Dizziness. Constitutional Constitutional ED: Denies chills or fever(s) Eyes Eyes: Denies blurry vision ENT ENT ED: Denies ear pain Cardiovascular Cardiovascular: Denies chest pain Respiratory/Chest Respiratory/Chest: Denies cough or dyspnea Gastrointestinal Gastrointestinal: Reports nausea and vomiting; Denies abdominal pain, constipation, diarrhea or melena Genitourinary Genitourinary ED: Denies dysuria or hematuria Musculoskeletal Musculoskeletal: Denies arthralgias or back pain Integumentary Denies abscess or Abrasions Neurologic Neurologic: Reports headache(s) Psychiatric Psychiatric: Denies anxiety or depression Endocrine Endocrinology: Denies cold intolerance Hematologic/Lymphatic Hematologic/Lymphatic: Reports none Allergic/Immunologic Allergic/Immunologic ED: Denies tongue swelling or urticaria EXAM Physical Exam Narrative Exam Narrative: 59-year-old male sitting upright in bed. Vital signs stable afebrile. No acute distress. at bedside. H EENT exam pupils round react light. Extra motions are intact. No facial droop. Normal speech. No trauma. Neck nontender. No lymphadenopathy. Lungs clear to auscultation bilaterally. Heart regular rhythm rate about 110 no murmur. Chest wall ribs nontender. Abdomen soft nontender. Moving all 4 extremities. 5 out of 5 career services representative strength. Dorsi and plantarflexion intact. Neurologic exam normal. NIH 0. Normal speech. No facial droop. Fingertip to nose and heel wade within normal limits. Const Vital Signs: 01/11/25 18:26 01/11/25 20:23 Temperature 98.0 F Temperature Source Oral Pulse Rate 116 H Respiratory Rate 16 Respiratory Effort Normal Non-Labored Respiratory Pattern Normal Blood Pressure 113/83 H Blood Pressure Mean 93 Pulse Ox 97 Oxygen Delivery Method Room Air Positive well nourished and well developed; Negative for cachectic, contractures or unkempt General Appearance ED: well developed and NAD; Negative for unkempt, cachectic, contractures, cyanotic, diaphoretic or pallor Nutritional Appearance: Negative for cachectic HEENT Reports TM's clear and moist mucous membranes Negative for trauma or tenderness Tympanic Membrane ED: Yes TM's clear Eyes PERRL and EOMs intact bilaterally General Eye ED: Negative for pale conjunctiva or scleral icterus Neck no lymphadenopathy, supple and no JVD General: Negative for tenderness Chest Wall inspection of chest normal and palpation of chest normal Chest: Negative for other Resp normal respiratory effort and clear to auscultation bilaterally Effort and Inspection: Negative for retractions Auscultation: Negative for rales, rhonchi, wheezes or diminished lung sounds Cardio regular rhythm, S1 normal heart sound, S2 normal heart sound and no murmurs; Negative for regular rate Rate: tachycardic GI normal to inspection, nondistended, normoactive bowel sounds, non-tender, non- distended and no masses Auscultation: normoactive bowel sounds Palpation: soft; Negative for tender, guarding or rebound tenderness present Back/Spine no CVA tenderness General Back: Negative for CVA tenderness Cervical Spine: Negative for cervical spine tenderness Thoracic Spine / Upper Back: Negative for thoracic spinal tenderness or paraspinal muscle tenderness Lumbar Spine / Lower Back: Negative for lumbar spinal tenderness Extremity normal to inspection General Extremety ED: Negative for edema or tenderness General Extremity: Negative for edema Neuro oriented x3, CN's II-XII intact bilaterally and no sensory deficits noted Sensorium / Orientation: alert; Negative for orientation impaired, lethargic or stuporous Motor Exam: strength 5/5 throughout Psych mental status grossly normal Appearance: Negative for unkempt Attitude: No agitated Mood & Affect: Negative for depressed, anxious or tearful Skin no rashes or lesions noted, no wounds and skin turgor normal General Skin Exam: elasticity normal; Negative for jaundice or pallor Lesions: No lesion noted Rashes: No rashes noted Trauma: Negative for abrasion Wounds: Negative for wounds noted MDM MDM MDM Narrative Medical decision making narrative: 59-year-old male with dizziness. Benign exam. Negative Hallpike. CAT scan and labs will be obtained with an EKG. Clinically I do not have a strong suspicion that this is vertigo. There is no signs of stroke. Repeat exam at 11:40 PM. Patient is feeling somewhat better after the Ativan. Repeat neurologic exam is on changed and unremarkable. CTA head and neck was unremarkable. Awaiting plain CT brain read. Patient to be discharged home outpatient follow-up with his primary care physician. He has an outpatient MRI scheduled. Dizziness uncertain etiology. Patient was able to get up out of bed and ambulate without any difficulty. I explained to both he and his that we do not a specific cause for his symptoms. History & Record Review Discussion w/independent historian: Patient and Family Lab Data Attestation: I reviewed the patient's lab results. Lab results narrative: CBC shows a white count of 14. H&H 14 and 43. Platelets 346. BMP shows a gap of 15. BUN and creatinine of 18 and 1.2. Glucose 135 Labs: Laboratory Results - last 24 hr 01/11/25 21:00 WBC 14.0 H RBC 4.62 Hgb 14.7 Hct 43.7 MCV 94.6 H MCH 31.8 MCHC 33.6 RDW Std Deviation 45.3 H RDW Coeff of Bhargavi 13.1 Plt Count 346 MPV 10.8 Immature Gran % (Auto) 0.500 Neut % (Auto) 61.0 Lymph % (Auto) 29.6 Walker % (Auto) 8.1 Eos % (Auto) 0.3 Baso % (Auto) 0.5 Absolute Neuts (auto) 8.6 H Absolute Lymphs (auto) 4.15 Nucleated RBC % 0 Sodium 138 Potassium 3.8 Chloride 103 Carbon Dioxide 20.0 L Anion Gap 15 BUN 18 Creatinine 1.20 Estim Creat Clear Calc 67.72 Est GFR (MDRD) Non-Af 69 BUN/Creatinine Ratio 15.2 Glucose 135 H Calcium 10.3 Radiography Diagnostic Testing: Clinical Impression(s) from Imaging Studies Brain CT 01/11/25 20:33 IMPRESSION: No acute intracranial findings. CLINICAL HISTORY: DIZZINESS [facility] 01/11/25 20:33 IMPRESSION: Patent anterior and posterior intracranial and extracranial circulation without hemodynamically significant stenosis One or more dose reduction techniques were used (e.g., Automated exposure control, adjustment of the mA and/or kV according to patient size, use of iterative reconstruction technique). Reading Location: [facility] CTA of the head neck and plain CT of the brain were read by the radiologist as no acute abnormality. Rhythm Strip Rhythm Strip: Sinus Tach Rate: 104 Ectopy: None EKG Initial EKG: Attestation: I personally reviewed and interpreted this EKG as follows: Interpretation: No Acute Injury Pattern and Sinus Tachycardia Comments: Sinus tachycardia rate of 104. No acute signs of IA or ischemia. Discharge Plan Triage Chief Complaint: General Illness ED Provider: Prasad Solano Dx/Rx/DC Orders Clinical Impression: Dizziness, History of diabetes mellitus, History of hypertension Instructions: ED Dizziness, Uncertain Cause Prescriptions: No Action gabapentin 600 mg Tablet 1,200 mg PO BID atorvastatin 80 mg Tablet 80 mg PO QHS clonazepam 0.5 mg Tablet 0.5 mg PO BID venlafaxine 150 mg Capsule,Extended Release 24hr 150 mg PO BID lithium carbonate 300 mg Capsule 300 mg PO BID Rx Instructions: 1 capsule in the morning, 2 capsules in the evening buspirone 10 mg Tablet 10 mg PO TID lisinopril 10 mg Tablet 10 mg PO DAILY omeprazole 20 mg Capsule,Delayed Release(Dr/Ec) 20 mg PO DAILY aspirin 81 mg Tablet,Chewable 81 mg PO BREAKFAST 30 Days Qty: 30 0RF prednisone 20 mg Tablet See Taper PO BREAKFAST Qty: 22 0RF Taper: Prednisone Taper 60 mg WITH BREAKFAST for 5 Days and 0 Hour 50 mg WITH BREAKFAST for 1 Day and 0 Hour 40 mg WITH BREAKFAST for 1 Day and 0 Hour 30 mg WITH BREAKFAST for 1 Day and 0 Hour 20 mg WITH BREAKFAST for 1 Day and 0 Hour prednisone 20 mg tablet 60 mg PO DAILY Qty: 12 0RF Rx Instructions: start 06/29/23 doxycycline hyclate 100 mg tablet 100 mg PO BID Qty: 20 0RF Primary Care Provider: Jessica Marcelino Referrals: Jessica Marcelino MD [Primary Care Provider] - As soon as possible Activity Restrictions/Additional Instructions: Follow-up with your primary care physician. Follow-up with your previously ordered outpatient MRI through your primary care physician. Print Language: Lithuanian Disposition Disposition: Home, Self Care
[2025-01-11] MEDS: Lorazepam 2 MG/ML WCH Syringe 1 MG IV (21:04)
[2025-01-11 21:05] LABS: Absolute Lymphocyte Count 4.15 X10^3/uL (0.83-4.51); Absolute Neutrophil Count 8.6 X10^3/uL (2.0-7.7); Basophil# 0.07 X10^3/uL; Basophil% 0.5 % (0-1); Eosinophil# 0.04 X10^3/uL; Eosinophils% 0.3 % (0-5); Hematocrit 43.7 % (40-54); Hemoglobin 14.7 g/dL (13.0-16.5); Lymphocyte # 4.15 X10^3/ul (0.83-4.51); Lymphocyte % 29.6 % (19-41); Mean Corp Hgb Conc 33.6 g/dL (32-36); Mean Corpuscular Hgb 31.8 pg (27.0-32.0); Mean Corpuscular Volume 94.6 fL (80-94); Mean Platelet Vol. 10.8 fl (6.2-12.0); Monocyte# 1.13 X10^3/uL; Monocyte% 8.1 % (0-10); NRBC Flagged by Analyzer 0 % (0-5); Neutrophil # 8.56 X10^3/uL (2.7-7.7); Platelet Count 346 K/mm3 (150-450); RBC Distribution Width CV 13.1 % (11.6-14.6); RBC Distribution Width SD 45.3 fl (35.1-43.9); Red Blood Count 4.62 M/mm3 (4.6-6.2)
[2025-01-11 22:00] VITALS: RESP 16
[2025-01-11 22:02] LABS: Anion Gap 15 (5-15); BUN 18 mg/dL (4-19); BUN/Creat Ratio 15.2 RATIO (10-20); Calcium,Total 10.3 mg/dL (7.6-11.0); Chloride 103 mmol/L (98-108); EST Glomerular Filtration Rate 69 (>60); Estimated Creatinine Clearance 67.72 ml/min (50-250); Glucose 135 mg/dL (70-99); Potassium 3.8 mmol/L (3.3-5.1); Sodium Level 138 mmol/L (133-145)
== END 2025-01-11 23:56 | disposition home or self-care (01) ==
PROVIDERS: Emergency Provider Emergency Medicine; PCP Internal Medicine; Visit Provider Emergency Medicine
DX: R42 Dizziness and giddiness (principal); E11.9 Type 2 diabetes mellitus without complications; E78.5 Hyperlipidemia, unspecified; I10 Essential (primary) hypertension; R51.9 Headache, unspecified; R11.2 Nausea with vomiting, unspecified; G47.30 Sleep apnea, unspecified; Z99.89 Dependence on other enabling machines and devices
CPT/HCPCS: 70450; 70496; 70498; 80048; 85025; 93005; 96374; 96375; 99283; Q9967; A4216